=== PATIENT | female | born 1960 ===

== ENCOUNTER 2024-02-29 05:20 | Day surgery (SDC) | payer OTHER ==
[~2024-02-29 05:20] MED LIST: CHILDREN'S ASPI81 MG PO; CLONAZEPAM0.5 MG PO; CRESTOR40 MG PO; VERAPAMIL ER120 MG PO
[2024-02-29] MEDS ORDERED: CEFAZOLIN SODIUM 1,000 MG VIAL IV ONE (11:00)
[2024-02-29] MEDS ORDERED: GENTAMICIN SULFATE 40 MG/ML VIAL IV ONE (11:00)
[2024-02-29] MEDS ORDERED: MACROBID 100 M100 MG PO (11:15)
[2024-02-29] MEDS ORDERED: TRAM1TAB98 PO (11:15)
== END 2024-02-29 14:15 | disposition home or self-care (01) ==
LOC: CIR.AMB 05:20
PROVIDERS: ATTEND Obstetrics & Gynecology Gynecology
DX: N81.11 Cystocele, midline (principal)